=== PATIENT | male | born 1995 | race Caucasian/White ===

== ENCOUNTER 2018-11-03 05:43 | Day surgery (SDC) | payer OTHER ==
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
[~2018-11-03] VITALS: Ht 190.5 cm; Wt 121.8 kg
[2018-11-03] VITALS (14 sets, daily range): BP systolic 120–156; BP diastolic 57–72; PULSE 54–90; RESP 10–27; Ht 190.5 cm; Wt 121.8 kg
[~2018-11-03 05:43] MED LIST: CEFAZOLIN (20 MG/ML) IV SYG IV* ONE; CEFAZOLIN 2 GM/50 ML (PMX) 50 ML IVPB SCH; LACTATED RINGER'S 1,000 ML IV SCH; LIDOCAINE 4% CR TOP ONE
[2018-11-03] MEDS ORDERED: SEVOFLURANE 15 MIN ONE (07:00)
--- NOTE | 2018-11-03 07:29 | PREAC ---
Date/Time of Note Date/Time of Note DATE: 11/03/18 TIME: 07:27 Anesthesia Eval and Record Evaluation Time Pre-Procedure Interview DATE: 11/03/18 TIME: : Age 23 Sex male NPO: 8 hrs Preoperative diagnosis R ankle fx Planned procedure R ankle ORIF Past Medical History Past Medical History: None Surgery & Anesthesia Issues No known issue Meds Anticoagulation: No Beta Tory within 24 hr: No Reason Beta Tory not given: Pt. not on B-Tory No Active Prescriptions or Reported Meds Current Medications Lactated Ringer's 1,000 ml @ 25 mls/hr Q24H IV ; Start 11/02/18 at 08:22 Meds reviewed: Yes Allergies Coded Allergies: No Known Allergy (Unverified , 11/03/18) Allergies Reviewed: Yes Labs/Studies Labs Reviewed: Reviewed by anesthesiologist test: Negative Pre-procedure Exam Last vitals Vital Signs Date Temp Pulse Resp B/P (MAP) Pulse Ox O2 O2 Flow FiO2 Time Delivery Rate 11/03/18 98.6 54 18 148/62 97 Room Air 07:00 (90) Airway: Adequate mouth opening, Adequate thyromental dist Mallampati: Mallampati III Teeth: Normal Lung: Normal Heart: Normal ASA Physical Status ASA physical status: 2 Emergency: None Planned Anesthetic General/MAC: LMA Planned Pain Management Single shot nerve block, Parenteral pain med, Local by surgeon Pre-operative Attestations Prior to commencing anesthesia and surgery, the patient was re-evaluated, there was verification of: *The patient's identity *The results of appropriate recent lab work and preoperative vital signs *The above evaluation not changing prior to induction *Anesthetic plan, risk benefits, alternative and complications discussed with patient/family; questions answered; patient/family understands, accepts and wishes to proceed. DAYNE ARNDT MD Nov 03, 2018 07:29
[2018-11-03] MEDS ORDERED: DIPHENHYDRAMINE 50 MG INJ IV PRN (07:30)
[2018-11-03] MEDS ORDERED: MEPERIDINE 25 MG INJ IV PRN (07:30)
[2018-11-03] MEDS ORDERED: HYDROmorphONE 1 MG/5 ML IV SYRINGE IV PRN ×3 (07:30)
[2018-11-03] MEDS ORDERED: MIDAZOLAM 1 MG/ML 2 ML INJ IV PRN (07:30)
[2018-11-03] MEDS ORDERED: FENTAnyl 50 MCG/ML VIAL IV PRN ×2 (07:30)
[2018-11-03] MEDS ORDERED: ONDANSETRON 4 MG INJ IV PRN (07:30)
[2018-11-03] MEDS ORDERED: LEVALBUTEROL (NEB) 1.25 MG/0.5 ML AMP HHN PRN (07:30)
[2018-11-03] MEDS ORDERED: MIDAZOLAM 1 MG/ML 2 ML INJ ONE (07:32)
[2018-11-03] MEDS ORDERED: FENTAnyl 50 MCG/ML VIAL ONE (07:32)
[2018-11-03] MEDS ORDERED: ROPIVACAINE 0.5 % 30 ML VIAL ONE (07:35)
[2018-11-03] MEDS ORDERED: POLYMYXIN/BACITRACIN 1L IRRIG ONE (08:30)
[2018-11-03] MEDS ORDERED: PROPOFOL 20 ML ONE (09:13)
[2018-11-03] MEDS ORDERED: LIDOCAINE 2% (SDV) 5 ML INJ ONE (09:13)
[2018-11-03] MEDS ORDERED: ONDANSETRON 4 MG INJ ONE (09:14)
[2018-11-03] MEDS ORDERED: METOCLOPRAMIDE 10 MG INJ ONE (09:14)
[2018-11-03] MEDS ORDERED: DEXAMETHASONE 4 MG/ML 5 ML INJ ONE (09:14)
[2018-11-03] MEDS ORDERED: HYDROmorphONE 2 MG/ML SYG ONE (09:16)
--- NOTE | 2018-11-03 10:24 | SIPON ---
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
--- NOTE | 2018-11-03 12:16 | PAC ---
Date/Time of Note Date/Time of Note DATE: 11/03/18 TIME: 12:16 Post-Anesthesia Notes Post-Anesthesia Note Last documented vital signs Vital Signs Date Temp Pulse Resp B/P (MAP) Pulse Ox O2 O2 Flow FiO2 Time Delivery Rate 11/03/18 97.6 77 18 123/66 96 Room Air 12:01 (85) Activity: WNL Respiratory function: WNL Cardiovascular function: WNL Mental status: Baseline Pain reasonably controlled: Yes Hydration appropriate: Yes Nausea/Vomiting absent: Yes DAYNE ARNDT MD Nov 03, 2018 12:16
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
== END 2018-11-03 13:50 | disposition home or self-care (01) ==
LOC: SDS 05:43
PROVIDERS: ATTEND Orthopaedic Surgery
DX: S82.831K Other fracture of upper and lower end of right fibula, subsequent encounter for closed fracture with nonunion (principal); X58.XXXD Exposure to other specified factors, subsequent encounter
CPT/HCPCS: 27726; 73610; J0690; J1100; J1170; J2250; J2405; J2765; J2795; J3010; Z7610; C1713